=== PATIENT | female | born 1990 | race Caucasian/White ===

== ENCOUNTER 2024-01-04 16:13 | Emergency (ER) | payer OTHER, SELFPAY ==
[2024-01-04 16:28] VITALS: BMI 34.5
[2024-01-04 16:35] VITALS: BP 133/86
[2024-01-04] MEDS: COMPAZINE 10 MG IV (16:51)
[2024-01-04] MEDS: NSS 1000 IV (16:52)
[2024-01-04] MEDS: TORADOL 15 MG IV (16:52)
[2024-01-04 16:53] LABS: % Basophils 0.4 % (0-2); % Immature Granulocytes 0.4 % (0-0.5); % Lymphocytes 8.1 % (20.5-51.1); % Neutrophils 85.1 % (42.2-75.2); Absolute Basophils 0.1 10^3/uL (0-0.2); Absolute Eosinophils 0.1 10^3/uL (0-0.7); Absolute Immature Granulocytes 0.1 10^3/uL (0-0.05); Absolute Lymphocytes 0.9 10^3/uL (1.2-3.4); Absolute Monocytes 0.6 10^3/uL (0.1-0.6); Absolute Neutrophils 9.6 10^3/uL (1.4-6.5); Hematocrit 41.8 % (37.0-47.0); Hemoglobin 14.9 g/dL (12.0-16.0); Mean Corp Hgb Conc. 35.6 g/dL (33.0-37.0); Mean Corpuscular Hgb 30.2 pg (27.0-31.0); Mean Corpuscular Volume 84.8 fL (81.0-99.0); Mean Platelet Volume 9.7 fL (7.4-10.4); Nucleated Red Blood Cells % 0 %; Platelet Count 247 10^3/uL (130-400); Red Blood Cell Count 4.93 10^6/uL (4.20-5.40); Red Cell Dist. Width 12.4 % (11.5-14.5); White Blood Cell Count 11.3 10^3/uL (4.8-10.8)
[2024-01-04 16:55] LABS: Urine Albumin Negative (Neg - Trace); Urine Bilirubin Negative (Negative); Urine Character Clear (Clear); Urine Color Yellow; Urine Glucose Negative (Negative); Urine Ketone Negative (Negative); Urine Leukocyte Negative (Negative); Urine Nitrite Negative (Negative); Urine Occult Blood Negative (Negative); Urine Urobilinogen Negative (Neg - 1+)
[2024-01-04 17:00] VITALS: BP 139/72
[2024-01-04 17:06] LABS: HCG, Serum Qualitative Screen Negative; Lactic Acid 1.5 mmol/L (0.7-2.0)
[2024-01-04 17:07] LABS: COVID-19 Antigen Negative (Negative)
[2024-01-04] MEDS: BENADRYL 12.5 MG IV (17:09)
[2024-01-04 17:10] LABS: ALT (SGPT) 115 U/L (0-35); AST (SGOT) 61 U/L (14-36); Albumin 4.9 g/dl (3.5-5.0); Alkaline Phosphatase 146 U/L (38-126); Blood Urea Nitrogen 18 mg/dl (7-17); Calcium 10.3 mg/dl (8.4-10.2); Carbon Dioxide 24 mmol/L (22-30); Chloride 101 mmol/L (98-107); Estimated Creatinine Clearance 95 ml/min; Glucose 102 mg/dl (70-99); Potassium 3.9 mmol/L (3.5-5.1); Sodium 136 mmol/L (135-145); Total Bilirubin 0.5 mg/dl (0.2-1.3); Total Protein 8.3 g/dl (6.3-8.2); eGFR > 60.00
--- NOTE | 2024-01-04 17:55 | ED.GENMED ---
Addendum entered and electronically signed by Emory Dowell PA-C 01/07/24 07:18:
Throat culture shows group C streptococcus. Spoke with patient regarding this result. Patient was seen at [facility] in the interim and was started on Augmentin. Advise she continue this.
Original Note:
History of Present Illness
<Brenton Montes PA-C - Last Filed: 01/05/24 08:04>
General
Chief Complaint: Fever
Time Seen by Provider: 01/04/24 16:32
Travel History
Have you had any contact with someone who has COVID-19?: No
Do you have any symptoms of coronavirus? Fever > 100 degrees, chills, cough, shortness of breath, sore throat, loss of taste or smell, muscle aches, or headache?: Yes
Symptoms:: see above
History of Present Illness
History of Present Illness:
33-year-old female with history of Farnaz's thyroiditis/hypothyroidism presents to the emergency department for evaluation of generalized body pain particular headache and neck pain associated with fever that developed this [place] any significant alcohol use. Has taken Tylenol and ibuprofen today without significant fever control. Planing of a severe headache, denies any vision changes, vomiting, chest pain, or shortness of breath. No
ill contacts. Does note a mild sore throat as well but denies coughing or nasal congestion
Past History
<Brenton Montes PA-C - Last Filed: 01/05/24 08:04>
Past History
ED Past Medical History: None
ED Past Surgical History: None
Review of Systems
<Brenton Montes PA-C - Last Filed: 01/05/24 08:04>
Review of Systems
Allergies reviewed?: Yes
All Other Systems: ROS reviewed and negative except as documented in HPI and ROS
Phy Exam
<Brenton Montes PA-C - Last Filed: 01/05/24 08:04>
Physical Exam
Physical Exam:
GEN: Well appearing, NAD, WDWN
Eyes: PERRLA, EOMs intact, no scleral icterus
HENT: NCAT, oral mucosa moist, no JVD, no cervical adenopathy. No meningismus
Lungs: CTAB, no wheezes, rales, rhonchi, normal chest wall excursion
Cardiac: Tachycardic/regular, no M/R/G, no peripheral edema. Radial pulses 2+ bilat
Abdomen: S, NT, ND, NABS, no masses or hepatosplenomegaly
Neuro: AO x 3, no focal deficits to BUE/BLE, normal sensation throughout
MSK: No gross deformity or ecchymosis. No edema. No digital clubbing
Skin: No rashes, petechiae. Normal color, no pallor or jaundice.
Psych: Calm, cooperative, proper hygiene
Course
<Brenton Montes PA-C - Last Filed: 01/05/24 08:04>
Orders/Labs/Results
Orders:
Orders
01/04/24 16:20
Test Result ONCE
01/04/24 16:38
COVID-19 Antigen Urgent
Source: Nasal Swab
Complete Blood Count/With Diff Urgent
Comprehensive Metabolic Panel Urgent
HCG, Serum Qualitative Screen Urgent
Lactic Acid Urgent
TSH Reflex To Free T4 Urgent
Comment: ADD ON
Urinalysis Reflex To Culture Urgent
Date Specimen was Collected: 01/04/24
Time Specimen was Collected: 16:35
Blood Culture Urgent
RALF Source: Blood/Venous
Specimen Description:
Blood Culture Urgent
RALF Source: Blood/Venous
Specimen Description:
Date Specimen was Collected: 01/04/24
Time Specimen was Collected: 16:35
Influenza A+B Rapid Molecular Urgent
RALF Source: Nasal Swab
Specimen Description:
Date Specimen was Collected: 01/04/24
Time Specimen was Collected: 16:20
Rapid Strep Group A Urgent
RALF Source: Throat/Pharynx
Specimen Description:
Date Specimen was Collected: 01/04/24
Time Specimen was Collected: 16:20
01/04/24 16:42
0.9% Sodium Chloride 1000 ml [Nss] 1,000 ml IV BOLUS
Ketorolac [Toradol] 15 mg IV NOW STA
Prochlorperazine [Compazine] 10 mg IV NOW STA
01/04/24 17:06
Diphenhydramine [Benadryl] 12.5 mg IV NOW STA
01/04/24 17:15
CR Chest - 2 Views Urgent
Comment:
Reason For Exam: fever
01/04/24 17:43
Add On- LAB Urgent
Tests Added?: TSH w reflex
01/04/24 17:54
Add On- LAB Urgent
Tests Added?: monotest
01/04/24 18:00
Acetaminophen [Tylenol] 1,000 mg PO NOW STA
01/04/24 19:31
Acetaminophen [Tylenol] 1,000 mg .ROUTE .STK-MED ONE
01/04/24 19:33
Acetaminophen [Tylenol] 1,000 mg PO NOW STA
Abnormal Lab Results
01/04/24
16:38
WBC 11.3 H 10^3/uL
(4.8-10.8)
Abs Immat Gran (auto) 0.1 H 10^3/uL
(0-0.05)
Absolute Neuts (auto) 9.6 H 10^3/uL
(1.4-6.5)
Absolute Lymphs (auto) 0.9 L 10^3/uL
(1.2-3.4)
Neutrophils % 85.1 H %
(42.2-75.2)
Lymphocytes % 8.1 L %
(20.5-51.1)
BUN 18 H mg/dl
(7-17)
Glucose 102 H mg/dl
(70-99)
Calcium 10.3 H mg/dl
(8.4-10.2)
AST 61 H U/L
(14-36)
ALT 115 H U/L
(0-35)
Alkaline Phosphatase 146 H U/L
(38-126)
Total Protein 8.3 H g/dl
(6.3-8.2)
01/04/24 16:38
01/04/24 16:38
Vital Signs
Initial and Last Documented VS:
Initial Vital Signs
Temp Pulse Resp Pulse Ox
103.2 F H 105 20 99
01/04/24 16:15 01/04/24 16:15 01/04/24 16:15 01/04/24 16:15
Last Documented Vital Signs
Temp Pulse Resp BP Pulse Ox
98.6 F 97 14 104/48 96
01/04/24 19:28 01/04/24 19:30 01/04/24 19:30 01/04/24 19:00 01/04/24 19:15
<PARMJIT Mckinney - Last Filed: 01/05/24 02:59>
Orders/Labs/Results
Orders:
Orders
01/04/24 16:20
Test Result ONCE
01/04/24 16:38
COVID-19 Antigen Urgent
Source: Nasal Swab
Complete Blood Count/With Diff Urgent
Comprehensive Metabolic Panel Urgent
HCG, Serum Qualitative Screen Urgent
Lactic Acid Urgent
TSH Reflex To Free T4 Urgent
Comment: ADD ON
Urinalysis Reflex To Culture Urgent
Date Specimen was Collected: 01/04/24
Time Specimen was Collected: 16:35
Blood Culture Urgent
RALF Source: Blood/Venous
Specimen Description:
Blood Culture Urgent
RALF Source: Blood/Venous
Specimen Description:
Date Specimen was Collected: 01/04/24
Time Specimen was Collected: 16:35
Influenza A+B Rapid Molecular Urgent
RALF Source: Nasal Swab
Specimen Description:
Date Specimen was Collected: 01/04/24
Time Specimen was Collected: 16:20
Rapid Strep Group A Urgent
RALF Source: Throat/Pharynx
Specimen Description:
Date Specimen was Collected: 01/04/24
Time Specimen was Collected: 16:20
01/04/24 16:42
0.9% Sodium Chloride 1000 ml [Nss] 1,000 ml IV BOLUS
Ketorolac [Toradol] 15 mg IV NOW STA
Prochlorperazine [Compazine] 10 mg IV NOW STA
01/04/24 17:06
Diphenhydramine [Benadryl] 12.5 mg IV NOW STA
01/04/24 17:15
CR Chest - 2 Views Urgent
Comment:
Reason For Exam: fever
01/04/24 17:43
Add On- LAB Urgent
Tests Added?: TSH w reflex
01/04/24 17:54
Add On- LAB Urgent
Tests Added?: monotest
01/04/24 18:00
Acetaminophen [Tylenol] 1,000 mg PO NOW STA
01/04/24 19:31
Acetaminophen [Tylenol] 1,000 mg .ROUTE .STK-MED ONE
01/04/24 19:33
Acetaminophen [Tylenol] 1,000 mg PO NOW STA
Abnormal Lab Results
01/04/24
16:38
WBC 11.3 H 10^3/uL
(4.8-10.8)
Abs Immat Gran (auto) 0.1 H 10^3/uL
(0-0.05)
Absolute Neuts (auto) 9.6 H 10^3/uL
(1.4-6.5)
Absolute Lymphs (auto) 0.9 L 10^3/uL
(1.2-3.4)
Neutrophils % 85.1 H %
(42.2-75.2)
Lymphocytes % 8.1 L %
(20.5-51.1)
BUN 18 H mg/dl
(7-17)
Glucose 102 H mg/dl
(70-99)
Calcium 10.3 H mg/dl
(8.4-10.2)
AST 61 H U/L
(14-36)
ALT 115 H U/L
(0-35)
Alkaline Phosphatase 146 H U/L
(38-126)
Total Protein 8.3 H g/dl
(6.3-8.2)
01/04/24 16:38
01/04/24 16:38
TSH 0.81
Vital Signs
Initial and Last Documented VS:
Initial Vital Signs
Temp Pulse Resp Pulse Ox
103.2 F H 105 20 99
01/04/24 16:15 01/04/24 16:15 01/04/24 16:15 01/04/24 16:15
Last Documented Vital Signs
Temp Pulse Resp BP Pulse Ox
98.6 F 97 14 104/48 96
01/04/24 19:28 01/04/24 19:30 01/04/24 19:30 01/04/24 19:00 01/04/24 19:15
<Brenton Montes PA-C - Last Filed: 01/05/24 08:04>
MDM/Problems Addressed
MDM/Problems Addressed:
33-year-old female presents with acute onset of fever and bodyaches. Workup was unrevealing with the exception of mild leukocytosis however no focal signs of bacterial infection are noted. Patient is concerned for possible thyroid storm since it
has been a similar presentation in the past TSH is pending mild transaminitis is noted however patient and her indicate that the symptoms past several occasions, she is status postcholecystectomy and has no focal abdominal tenderness. No
meningeal signs. Will sign out to Alena Martinez [employer] pending remainder of workup, likely self limited viral syndrome, discussed supportive care and return parameters.
<PARMJIT Mckinney - Last Filed: 01/05/24 02:59>
*Critical Care Note
Total Time (30-74mins, 75-104mins- exclusive of procedures): Not Applicable
ED Attending Note
<Brenton Montes PA-C - Last Filed: 01/05/24 08:04>
-
Portions of this chart may have been created with voice recognition software.� Occasional wrong word or��sound alike� substitutions may have occurred due to the inherent limitations of voice recognition software.
Discharge Plan
Departure
Patient Disposition: Home (Routine Discharge)
Date of Disposition: 01/04/24
Time of Disposition: 19:30
Patient with high blood pressure during this ER visit?: No
Condition: Good
Covid-19: Not Applicable
Discharge Problem:
Acute viral syndrome
Instructions: Viral Syndrome (DC)
Prescriptions:
New
ondansetron 4 mg tablet,disintegrating
4 mg PO TIDPRN PRN (Reason: nausea/vomiting) Qty: 10 0RF
No Action
cefdinir 300 MG capsule
300 mg PO BID Qty: 14 0RF
prednisone 20 MG tablet
40 mg PO DAILY Qty: 8 0RF
Referrals:
Danika Andrew, DO [Family Provider] -
Interventions
Interventions:
*Risk Screen - Suicide Last Done: 01/04/24 16:29
*General Assessment Last Done: 01/04/24 16:29
*Neglect/Abuse Screening Last Done: 01/04/24 16:29
ED- Fall Risk Assessment Last Done: 01/04/24 16:30
*ED COVID-19 Vaccine History Last Done: 01/04/24 16:29
*Nursing Disposition Last Done: 01/04/24 19:45
ED- Neurological Assessment Last Done: 01/04/24 17:06
ED-Skin Assessment Last Done: 01/04/24 16:30
Discharge Date and Time
Discharge Date/Time: 01/04/24 19:45
Print Language: SETSWANA
[2024-01-04 18:00] VITALS: BP 123/59
[2024-01-04 19:00] VITALS: BP 104/48
[2024-01-04 19:29] LABS: TSH Reflex To Free T4 0.81 uIU/ml (0.47-4.68)
[2024-01-04] MEDS: TYLENOL 1000 MG PO (19:36)
== END 2024-01-04 19:45 | disposition home or self-care (01) ==
LOC: EMR 16:13
PROVIDERS: Emergency Medicine; Physician Assistant; EMERGENCY PHYSICIAN Emergency Medicine; FAMILY PHYSICIAN Internal Medicine
DX: B34.9 Viral infection, unspecified (principal); E06.3 Autoimmune thyroiditis
CPT/HCPCS: 99283; 96374; 96375; 96361; 71046; 80053; 81003; 83605; 84443; 84703; 85025; 87040; 87070; 87147; 87502; 87811; 87880